=== PATIENT | female | born 1970 | race Two or more races ===

== ENCOUNTER 2019-08-05 11:15 | Emergency (ER) | payer OTHER ==
[~2019-08-05] VITALS: Ht 162.6 cm; Wt 99.8 kg
[2019-08-05 11:27] VITALS: BP 149/110
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
[2019-08-05] MEDS ORDERED: Acetaminophen 500mg (ES) tab ORAL ONE (12:30)
[2019-08-05 13:45] VITALS: BP 149/110
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
[2019-08-05] MEDS ORDERED: LIDODERM700 M1 TOPIC (13:46)
[2019-08-05] MEDS ORDERED: ACETAMINOPHEN500 MG ORAL (13:46)
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
== END 2019-08-05 13:45 | disposition home or self-care (01) ==
LOC: EMR 13:45
DX: S39.012A Strain of muscle, fascia and tendon of lower back, initial encounter (principal); S29.012A Strain of muscle and tendon of back wall of thorax, initial encounter; Z79.01 Long term (current) use of anticoagulants; Z88.6 Allergy status to analgesic agent; V43.52XA Car driver injured in collision with other type car in traffic accident, initial encounter; Y92.410 Unspecified street and highway as the place of occurrence of the external cause
CPT/HCPCS: 72020; 73521; 99284